=== PATIENT | male | born 1970 | race Caucasian/White ===

== ENCOUNTER 2018-04-26 20:10 | Emergency (ER) | payer OTHER ==
[~2018-04-26] VITALS: Ht 177.8 cm; Wt 113.6 kg
[~2018-04-26 20:10] MED LIST: BACTRIM,SEPT1 TABLET PO; CARISOPRODOL350 MG PO; DICLOFENAC SODI75 MG PO; DILAUDID2 MG PO; FLEXERIL10 MG PO; FLEXERIL5 MG PO; HYDROCODON-ACE1 EAC7 PO; KEFLEX500 MG PO; MORPHINE SULFAT15 M1 PO; MOTRIN600 MG PO; MUPIROCIN22 GM TP; NO HOME MEDS; NOHOMEMEDS; ONDANSETRON ODT8 MG PO; OXYCODONE-APAP1 EACH PO; PERCOCET 5/31 TABLET PO; TERBINAFINE HC250 MG PO; TYLENOL WITH C1 EACH PO; ZOFRAN ODT4 MG PO
[2018-04-26 22:01] LABS: BASOPHIL (%) 0.4 % (0-1); EOSINOPHIL (%) 0.4 % (0-5); HEMATOCRIT 39.4 % (38.0-50.0); HEMOGLOBIN 13.5 G/DL (12.5-16.6); IMMATURE GRANULOCYTE (%) 0.3 % (0.0-0.7); LYMPHOCYTE (%) 24.4 % (15-42); LYMPHOCYTE COUNT 1.9 K/uL (1.0-2.8); MCH 28.5 PG (29.0-34.0); MCHC 34.3 G/DL (30.0-36.0); MCV 83.3 FL (86-99); MONOCYTE (%) 6.6 % (3-12); MONOCYTE COUNT 0.5 K/uL (0-0.8); NEUTROPHIL (%) 67.9 % (45-76); NEUTROPHIL COUNT 5.4 K/uL (1.8-6.4); PLATELET COUNT 345 K/uL (156-360); RBC DIS.WIDTH-CV 12.2 % (11.8-14.6); RED BLOOD COUNT 4.73 M/uL (4.00-5.50); WHITE BLOOD COUNT 7.9 K/uL (4.1-10.2)
[2018-04-26 22:21] LABS: ALBUMIN 4.3 g/dL (3.2-4.8); CHLORIDE 107 mEq/L (99-109); POTASSIUM 4.6 mEq/L (3.7-5.4); SODIUM 141 mEq/L (136-147)
[2018-04-26 22:24] LABS: GLUCOSE 83 mg/dL (70-99); TOTAL PROTEIN 6.4 g/dL (6.4-8.3)
[2018-04-26 22:26] LABS: TOTAL BILIRUBIN 0.4 mg/dL (0.0-1.0)
[2018-04-26 22:27] LABS: ALKALINE PHOSPHATASE 61 IU/L (3-129); CREATININE 0.9 mg/dL (0.6-1.3); GFR ESTIMATE (CALCULATED) > 59 mL/min/ (58.99-99999)
[2018-04-26 22:28] LABS: UREA NITROGEN (BUN) 9 mg/dL (9-23)
[2018-04-26 22:29] LABS: AST (GOT) 26 IU/L (2-34)
[2018-04-26 22:30] LABS: ALT (GPT) 30 IU/L (3-49)
[2018-04-26 22:31] LABS: LIPASE 9 U/L (1.0-51.0)
[2018-04-26] MEDS ORDERED: MIRALAX119 GM PO (23:58)
[2018-04-26] MEDS ORDERED: CITROMA296 ML PO (23:59)
[2018-04-27 00:20] VITALS: BP 135/87
== END 2018-04-27 00:29 | disposition home or self-care (01) ==
LOC: EME → EDBD 20:10 → EME 04-27 00:29
PROVIDERS: Emergency Medicine
DX: K59.00 Constipation, unspecified (principal); R31.9 Hematuria, unspecified; Z87.891 Personal history of nicotine dependence; Z88.6 Allergy status to analgesic agent; Z88.5 Allergy status to narcotic agent
CPT/HCPCS: 74177; 80053; 83690; 85025; 99281; 99285; J2405; J3010